=== PATIENT | female | born 1940 | race Caucasian/White ===

== ENCOUNTER 2017-04-02 13:34 | Emergency (ER) | payer MEDICARE ==
[~2017-04-02] VITALS: Ht 170.2 cm; Wt 55.0 kg
[~2017-04-02 13:34] MED LIST: ALPR.25 PO; BIOTCAP PO; CIPR3.5O LEFT EYE; KETO1SOL3 LEFT EYE; LOSA50TA PO; LUMI0.01 EACH EYE; MONT10TA2 PO; OMEGCAP21 PO; PRED1%O LEFT EYE; SOTA80 PO; TRAZ50TA4 PO; VITA20003 PO
[2017-04-02 13:35] VITALS: BP 186/103; PULSE 73; RESP 14; TEMP 98.8; O2SAT 96
--- NOTE | 2017-04-02 15:53 | PD ---
HPI Chief Complaint: Syncope/Near-Syncope Time Seen by Provider: 15:50 Travel History International Travel<30 days: No Contact w/Intl Traveler<30days: No Traveled to known affect area: No History of Present Illness HPI 76-year-old female with PMH of paroxysmal atrial fibrillation, anxiety, asthma, hypertension presents to the ED for evaluation of near syncopal episode 6 days ago. 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 She was able to sit down. She states that she began to breathe deeply. She states that her symptoms resolved spontaneously after approximately 3-5 minutes. Additionally she relates an episode for nights ago when she woke from sleep with palpitations. She states that she took her pulse and her heart rate was 100. She denies accompanying nausea, vomiting, chest pain, diaphoresis. She is asymptomatic on presentation. She endorses compliance with her daily medications. She states that she attempted to speak with her primary care ( IVON Briones) as well as her photography instructor but was referred to the ED. PFSH Past Medical History Asthma: Yes Heart Rhythm Problems: Yes (a-fib) Cardiac Catheterization: Yes (2005 ) Cardiovascular Problems: Yes High Cholesterol: No Congestive Heart Failure: No Diabetes: No Fibromyalgia: Yes Hypertension: Yes Neurologic: Yes (PERIPHERAL NEUROPATHY) Respiratory: Yes (BRONCHITIS) ?: Unknown Menopausal: Yes Tubal Ligation: Yes Past Surgical History Coronary Artery Bypass Graft: No Genitourinary Surgery: Yes (BLADDER REPAIR) Hysterectomy: Yes Social History Alcohol Use: No Tobacco Use: No Substance Use: No Allergies-Medications (Allergen,Severity, Reaction): Coded Allergies: latex (Unverified Allergy, Mild, Rash, 01/30/17) Uncoded Allergies: MYCINS (Adverse Reaction, Intermediate, TACYCARDIA, 09/07/14) Reported Meds & Prescriptions Reported Meds & Active Scripts Active Reported Vitamin D-1000 (Cholecalciferol) 1,000 Unit Tab 1,000 Units PO DAILY Vitamin B-12 (Cyanocobalamin) 500 Mcg Tab 500 Mcg PO DAILY Biotin 10 Mg Tab 10 Mg PO DAILY Fish Oil + D3 (Fish Oil-Cholecalciferol) 1,200-1,000 Mg-Unit Cap 1 Cap PO DAILY Trazodone (Trazodone HCl) 50 Mg Tab 50 Mg PO HS Xanax (Alprazolam) 0.25 Mg Tab 0.125 Mg PO Q8H PRN Singulair (Montelukast Sodium) 10 Mg Tab 10 Mg PO HS Sotalol (Sotalol HCl) 80 Mg Tab 40 Mg PO BID Review of Systems Except as stated in HPI: all other systems reviewed are Neg Physical Exam Narrative GENERAL: Well-nourished, well-developed white female in no acute distress. SKIN: Focused skin assessment warm/dry. HEAD: Normocephalic. EYES: No scleral icterus. No injection or drainage. PERRLA. EOMI. NECK: Supple, trachea midline. No JVD or lymphadenopathy. CARDIOVASCULAR: Regular rate and rhythm without murmurs, gallops, or rubs. RESPIRATORY: Breath sounds clear and equal bilaterally. No accessory muscle use. GASTROINTESTINAL: Abdomen soft, non-tender, nondistended. Active bowel sounds. MUSCULOSKELETAL: No cyanosis, or edema. NEUROLOGICAL: Awake and alert. Cranial nerves II through XII intact. Motor and sensory grossly within normal limits. Five out of 5 muscle strength in all muscle groups. Normal speech. BACK: Nontender without obvious deformity. No CVA tenderness. Data Data Last Documented VS Vital Signs Date Time Temp Pulse Resp B/P (MAP) Pulse Ox O2 Delivery O2 Flow Rate FiO2 04/02/17 19:29 131/83 (99) 04/02/17 16:37 18 Room Air 04/02/17 13:35 98.8 73 96 Orders Orders Electrocardiogram (04/02/17 15:53) Complete Blood Count With Diff (04/02/17 15:53) Comprehensive Metabolic Panel (04/02/17 15:53) Magnesium (Mg) (04/02/17 15:53) Ckmb (Isoenzyme) Profile (04/02/17 15:53) Troponin I (04/02/17 15:53) Act Partial Throm Time (Ptt) (04/02/17 15:53) Prothrombin Time / Inr (Pt) (04/02/17 15:53) Urinalysis - C+S If Indicated (04/02/17 15:53) Chest, Single Ap (04/02/17 15:53) Ecg Monitoring (04/02/17 15:53) Iv Access Insert/Monitor (04/02/17 15:53) Oximetry (04/02/17 15:53) Sodium Chloride 0.9% Flush (Ns Flush) (04/02/17 16:00) Ct Brain W/O Iv Contrast(Rout) (04/02/17 16:13) Ed Discharge Order (04/02/17 19:16) Labs Laboratory Tests Test 04/02/17 16:45 04/02/17 18:45 White Blood Count 6.1 TH/MM3 Red Blood Count 4.59 MIL/MM3 Hemoglobin 13.8 GM/DL Hematocrit 41.2 % Mean Corpuscular Volume 89.9 FL Mean Corpuscular Hemoglobin 30.2 PG Mean Corpuscular Hemoglobin Concent 33.5 % Red Cell Distribution Width 13.2 % Platelet Count 230 TH/MM3 Mean Platelet Volume 7.8 FL Neutrophils (%) (Auto) 58.8 % Lymphocytes (%) (Auto) 27.1 % Monocytes (%) (Auto) 9.5 % Eosinophils (%) (Auto) 4.1 % Basophils (%) (Auto) 0.5 % Neutrophils # (Auto) 3.6 TH/MM3 Lymphocytes # (Auto) 1.7 TH/MM3 Monocytes # (Auto) 0.6 TH/MM3 Eosinophils # (Auto) 0.2 TH/MM3 Basophils # (Auto) 0.0 TH/MM3 CBC Comment DIFF FINAL Differential Comment Prothrombin Time 10.4 SEC Prothromb Time International Ratio 0.9 RATIO Activated Partial Thromboplast Time 26.6 SEC Blood Urea Nitrogen 15 MG/DL Creatinine 0.71 MG/DL Random Glucose 92 MG/DL Total Protein 6.7 GM/DL Albumin 3.7 GM/DL Calcium Level 9.3 MG/DL Magnesium Level 2.2 MG/DL Alkaline Phosphatase 65 U/L Aspartate Amino Transf (AST/SGOT) 18 U/L Alanine Aminotransferase (ALT/SGPT) 26 U/L Total Bilirubin 0.4 MG/DL Sodium Level 141 MEQ/L Potassium Level 4.0 MEQ/L Chloride Level 105 MEQ/L Carbon Dioxide Level 28.5 MEQ/L Anion Gap 8 MEQ/L Estimat Glomerular Filtration Rate 80 ML/MIN Total Creatine Kinase 51 U/L Troponin I LESS THAN 0.02 NG/ML Urine Color YELLOW Urine Turbidity CLEAR Urine pH 6.0 Urine Specific [place] 1.010 Urine Protein NEG mg/dL Urine Glucose (UA) NEG mg/dL Urine Ketones NEG mg/dL Urine Occult Blood NEG Urine Nitrite NEG Urine Bilirubin NEG Urine Urobilinogen LESS THAN 2.0 MG/DL Urine Leukocyte Esterase SMALL Urine RBC 1 /hpf Urine WBC 2 /hpf Urine Bacteria RARE /hpf Urine Mucus FEW /lpf Microscopic Urinalysis Comment CULT NOT INDICATED MDM Medical Decision Making Medical Screen Exam Complete: Yes Emergency Medical Condition: Yes Differential Diagnosis TIA versus ICH versus arrhythmia versus ACS versus electrolyte abnormality versus other Narrative Course 76-year-old female with PMH of paroxysmal atrial fibrillation, anxiety, asthma, HTN presents to the ED for evaluation of near syncopal episode 6 days ago. 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 Symptoms resolved spontaneously after approximately 3-5 minutes. Additionally she relates an episode 4 nights ago when she woke from sleep with palpitations. She denies accompanying nausea, vomiting, chest pain, diaphoresis or radiation of the pain. She is asymptomatic on presentation. She is followed by IVON Chapman PCP and , cardiology. Blood pressure elevated in triage , 131/86 in the exam room. Physical exam is reassuring. No focal neuro deficits noted. EKG rate 50, sinus bradycardia. Left axis deviation. First-degree AV block. No acute ST changes. Reviewed by Dr. Lopez. CXR: COPD changes. Cardiomegaly. Stable as compared to previous x-ray. Cardiac enzymes negative 1. CBC, CMP, coags are without concerning abnormalities. CT head: Normal, no changes as compared to previous per radiology read. I reviewed the patient's record. She had a negative stress test on 03/15/16. I discussed the case with Dr. Lopez. We feel that the patient is safe for outpatient follow up. I discussed the results of the workup and the plan with the patient. She is agreeable to discharge with outpatient follow-up. She states that she has an upcoming primary care appointment. She is stable and discharged home. Diagnosis Primary Impression: Near syncope Referrals: Bedspread Folder Primary Care Physician Patient Instructions: General Instructions, Near Syncope (ED) Additional Instructions: Rest, hydrate. Resume normal, gentle activities as tolerated. Keep a log of your BP to present to your PCP at the next visit. Follow up with the PCP and photography instructor as discussed. Return to the ED for worsening symptoms or any urgent or emergent medical condition. Disposition: 01 DISCHARGE HOME Condition: Stable Candelaria Lazo Apr 02, 2017 15:53
[2017-04-02] MEDS ORDERED: SODIUM CHLORIDE 0.9% FLUSH 10 ML FLUSH IVF PRN (16:00)
--- NOTE | 2017-04-02 16:46 | RADRPT ---
EXAM DATE/TIME: 04/02/2017 16:26 [facility] COMPARISON: CHEST SINGLE AP, March 12, 2016, 14:59. INDICATIONS : Short of breath after syncopal episode. MEDICAL HISTORY : A-fib. Asthma. SURGICAL HISTORY : None. ENCOUNTER: Initial ACUITY: 1 day PAIN SCORE: 0/10 LOCATION: Bilateral chest FINDINGS: The heart is mildly enlarged. The mediastinal contours are within normal limits. There are advanced C OPD changes within the pulmonary parenchyma. CONCLUSION: 1. Advanced COPD changes and mild cardiomegaly. Stable compared to previous exam. Eric Cuadra MD on April 02, 2017 at 16:43 Board Certified Radiologist. This report was verified electronically.
[2017-04-02 17:30] LABS: AUTOMATED NEUTROPHIL # 3.6 TH/MM3 (1.8-7.7); BASOPHIL % 0.5 % (0.0-2.0); EOSINOPHIL # 0.2 TH/MM3 (0-0.4); EOSINOPHIL % 4.1 % (0.0-4.0); HEMATOCRIT 41.2 % (35.0-46.0); HEMO FLAGS DIFF FINAL; LYMPH % 27.1 % (9.0-44.0); LYMPHOCYTE # 1.7 TH/MM3 (1.0-4.8); MEAN CELL VOLUME 89.9 FL (80.0-100.0); MEAN CORPUSCULAR HEMOGLOBIN 30.2 PG (27.0-34.0); MEAN CORPUSCULAR HGB CONC 33.5 % (32.0-36.0); MONO % 9.5 % (0.0-8.0); NEUT % 58.8 % (16.0-70.0); PLATELET COUNT 230 TH/MM3 (150-450); RED BLOOD COUNT 4.59 MIL/MM3 (4.00-5.30); RED CELL DISTRIBUTION WIDTH 13.2 % (11.6-17.2); WHITE BLOOD COUNT 6.1 TH/MM3 (4.0-11.0)
[2017-04-02 17:41] LABS: APTT (PATIENT) 26.6 SEC (24.3-30.1); INTERNATIONAL NORMALIZED RATIO 0.9 RATIO; PROTHROMBIN TIME - PATIENT 10.4 SEC (9.8-11.6)
[2017-04-02 17:46] LABS: ANION GAP 8 MEQ/L (5-15); AST (GOT) 18 U/L (15-37); BICARBONATE 28.5 MEQ/L (21.0-32.0); BLOOD UREA NITROGEN 15 MG/DL (7-18); CHLORIDE 105 MEQ/L (98-107); GLOMERULAR FILTRATION RATE 80 ML/MIN (>89); MAGNESIUM 2.2 MG/DL (1.5-2.5); SODIUM (NA) 141 MEQ/L (136-145)
[2017-04-02 17:51] LABS: ALKALINE PHOSPHATASE 65 U/L (45-117); ALT (GPT) 26 U/L (10-53); TOTAL BILIRUBIN ADULT 0.4 MG/DL (0.2-1.0)
[2017-04-02 17:58] LABS: CREATINE KINASE 51 U/L (26-192)
--- NOTE | 2017-04-02 18:27 | RADRPT ---
EXAM DATE/TIME: 04/02/2017 18:13 [facility] COMPARISON: CT BRAIN W/O CONTRAST, March 12, 2016, 15:04. INDICATIONS : Dizziness. RADIATION DOSE: 45.20 CTDIvol (mGy) MEDICAL HISTORY : Cardiovascular disease. Hypertension. Asthma SURGICAL HISTORY : Hysterectomy. ENCOUNTER: Initial ACUITY: 1 day PAIN SCALE: 0/10 LOCATION: cranial TECHNIQUE: Multiple contiguous axial images were obtained of the head. Using automated exposure control and adj ustment of the mA and/or kV according to patient size, radiation dose was kept as low as reasonably a chievable to obtain optimal diagnostic quality images. DICOM format image data is available electro nically for review and comparison. FINDINGS: CEREBRUM: The ventricles are normal for age. No evidence of midline shift, mass lesion, hemorrhage or acute in farction. No extra-axial fluid collections are seen. POSTERIOR FOSSA: The cerebellum and brainstem are intact. The 4th ventricle is midline. The cerebellopontine angle i s unremarkable. EXTRACRANIAL: The visualized portion of the orbits is intact. SKULL: The calvaria is intact. No evidence of skull fracture. CONCLUSION: Normal examination. No significant change has occurred. Ken Peters MD on April 02, 2017 at 18:24 Board Certified Radiologist. This report was verified electronically.
[2017-04-02 19:06] LABS: BACTERIA, URINE RARE /hpf; BLOOD, URINE NEG (NEG); COMMENT (UR) CULT NOT INDICATED; CULTURE IF INDICATED CULT NOT INDICATED; GLUCOSE,URINE NEG (NEG); KETONE, URINE NEG (NEG); MUCUS URINE FEW /lpf (OCC); NITRITE,URINE NEG (NEG); URINE COLOR YELLOW (YELLW/STRAW)
[2017-04-02] MEDS ORDERED: ALPR.25 PO (19:12)
[2017-04-02] MEDS ORDERED: SOTA80TA PO (19:12)
[2017-04-02] MEDS ORDERED: VITA500T4 PO (19:12)
[2017-04-02] MEDS ORDERED: MONT10TA2 PO (19:12)
[2017-04-02] MEDS ORDERED: BIOT10TA PO (19:12)
[2017-04-02] MEDS ORDERED: TRAZ50TA12 PO (19:12)
[2017-04-02] MEDS ORDERED: FISHCAP4 PO (19:12)
[2017-04-02] MEDS ORDERED: VITA1000 PO (19:12)
[2017-04-02 19:29] VITALS: BP 131/83
--- NOTE | 2017-04-03 21:21 | EKG ---
Date Performed: 04/02/2017 Time Performed: 16:39:06 PTAGE: 76 years EKG: SINUS BRADYCARDIA NONSPECIFIC ST & T-WAVE ABNORMALITY BORDERLINE ECG PREVIOUS TRACING : 03/12/2016 21.50 Compared to prior tracing no significant change DOCTOR: Dylon Gallego Interpretating Date/Time 04/03/2017 21:19:28
== END 2017-04-02 19:51 | disposition home or self-care (01) ==
LOC: NEPC 13:34
DX: R55 Syncope and collapse (principal); I10 Essential (primary) hypertension; I48.91 Unspecified atrial fibrillation
CPT/HCPCS: 70450; 71010; 80053; 81001; 82550; 83735; 84484; 85025; 85610; 85730; 93005; 99285